=== PATIENT | female | born 1935 | race Caucasian/White ===

== ENCOUNTER → 2016-06-27 | Outpatient (CLI) | payer OTHER | LOC: FIMAGING 13:07 | DX: Z12.31 Encounter for screening mammogram for malignant neoplasm of breast (principal) | CPT/HCPCS: G0202 ==

== ENCOUNTER → 2016-10-11 | Outpatient (CLI) | payer OTHER ==
[~2016-10-11] MED LIST: LIDOCAINE 1% 300 MG/30 ML SDV ONE
[2016-10-12 06:57] LABS: HIPAA RELEASE SIGNED SIGNED
[2016-10-15 14:20] LABS: MAIL RESULTS MAILED
== END ==
LOC: FIMAGING 11:45
PROVIDERS: ATTEND Internal Medicine Hematology & Oncology
PROC: 0W9F3ZZ Drainage of Abdominal Wall, Percutaneous Approach (ICD-10-PCS; principal; 2016-10-11)
DX: R18.0 Malignant ascites (principal); C25.9 Malignant neoplasm of pancreas, unspecified

== ENCOUNTER → 2016-10-24 | Outpatient (CLI) | payer OTHER | LOC: FIMAGING 13:39 | PROVIDERS: ATTEND Internal Medicine | DX: R18.8 Other ascites (principal); C25.9 Malignant neoplasm of pancreas, unspecified ==